=== PATIENT | male | born 1965 | race Hispanic/Latino ===

== ENCOUNTER 2024-07-09 12:09 | Emergency (ER) | payer OTHER ==
[~2024-07-09] VITALS: Ht 180.3 cm; Wt 113.4 kg
[2024-07-09] MEDS: ketOROlac 30MG VIAL (30MG/ML) IM ONE (13:02)
[2024-07-09] MEDS: ORPHENADRINE 60MG/2ML IM ONE (13:02)
--- NOTE | 2024-07-09 13:22 | ERN ---
General Chief Complaint: Low Back Pain/Injury Stated Complaint: BACK PAIN Time Seen by MD: 12:13 Source: patient History of Present Illness Initial Comments 59-year-old male coming in to be evaluated for left flank pain he states that the pain began yesterday and got concerned because the pain also radiates to the left hip and then after that the left leg is numb. No fever no chills. Patient does work and a stressful environment. Allergies: Coded Allergies: No Known Allergies (Unverified Allergy, Unknown, 07/09/24) Past Medical History Past Medical History: Diabetes-Type II, High Cholesterol, Hypertension Medical History Other: SPINAL STENOSIS Past Surgical History: Other Surgical History Other: L KNEE SURGERY ROS Dictation CONSTITUTIONAL: No chills, no fever, no weakness, no diaphoresis, no malaise. HEAD/FACE: No signs of trauma. EENT: No eye pain, no blurred vision, no tearing, no double vision, no ear pain, no ear discharge, no nose pain, no nasal congestion, no throat pain, no throat swelling, no mouth pain. RESPIRATORY: No cough, no orthopnea, no SOB, no stridor, no wheezing. CARDIOVASCULAR: No chest pain, no edema, no palpitations, no syncope. GASTROINTESTINAL/ABDOMINAL: No abdominal pain, no constipation, no diarrhea, no nausea, no vomiting. GENITOURINARY: No abnormal discharge, no dysuria, no frequent urination, no hematuria. No complaints of pain in the genitals. MUSCULOSKELETAL: No back pain, no gout, no joint pain, no joint swelling, no muscle pain, no muscle stiffness, no neck pain. INTEGUMENTARY: No change in color, no change in hair/nails, no dryness, no lesion, no lumps, no rash. NEUROLOGICAL/PSYCH: No anxiety, not depressed, no emotional problem, no headache, no numbness, no pre-existing deficit, no history of seizures, no tremors, no weakness. HEMATOLOGIC/LYMPHATIC: Not anemic, no history of blood clots, no apparent ble eding, no bruising, glands not swollen. All Systems Negative, Except as Noted. Physical Exam Physical Exam Dictation VITAL SIGNS: Reviewed. GENERAL APPEARANCE: Alert, oriented x3, no acute distress, obese. HEAD AND FACE: Non-traumatic. EYES: PERRL, pink conjunctivas, eyelid no trauma, anterior chamber clear. EARS: Pinnas intact and no signs of trauma or erythema. Ear canals clear and no discharge. TMs no erythema. NOSE: No discharge, no bleeding. OROPHARYNX: Mouth normal, teeth no caries, tongue pink. Pharynx clear, no erythema. Tonsils no exudates, no abscesses noted. Mucous membrane moist. NECK: Supple, non-tender, no thyromegaly, no masses, no JVD, no bruits. BREAST: Deferred. CHEST: No tenderness, no crepitus, no paradoxical movement, no retractions. LUNGS: Clear, well-ventilated, symmetric, no rales, no wheezing, no rhonchi, no stridor, good breath sounds bilaterally. HEART: Regular rate, regular rhythm, no murmur, no gallops. VASCULAR: No peripheral edema. ABDOMEN: Soft, positive bowel sounds, nondistended, no guarding, nontender, no rebound, no masses no hepatomegaly, no splenomegaly, no Decker's sign, no hernias. RECTAL: Deferred. GENITAL: Deferred. NEUROLOGICAL: Normal speech, gross motor function intact, gross sensory function intact. MUSCULOSKELETAL: Neck nontender, full range of motion, back nontender, full range of motion. EXTREMITIES: Nontender, full range of motion. SKIN: Color pink, dry, no turgor, no rash, no lacerations, no abrasions, no contusions. LYMPHATICS: Deferred. Results Laboratory and Microbiology Lab and Micro Result Laboratory Tests Test 07/09/24 12:42 07/09/24 13:13 Urine Color LIGHT-YELLOW (YELLOW) Urine Appearance CLEAR (CLEAR) Urine pH 7.5 (5.0-8.0) Urine Specific [place] 1.033 (1.001-1.031) Urine Protein NEGATIVE mg/dL (NEGATIVE) Urine Glucose (UA) >=1000 mg/dL (NEGATIVE) H Urine Ketones 10 mg/dL (NEGATIVE) H Urine Occult Blood NEGATIVE (NEGATIVE) Urine Nitrate NEGATIVE (NEGATIVE) Urine Bilirubin NEGATIVE mg/dL (NEGATIVE) Urine Urobilinogen 0.2 mg/dL (0.2-1.0) Urine Leukocyte Esterase 75 Christian/uL (NEGATIVE) H Urine RBC 2-5 /HPF (0-1) H Urine WBC 2-5 /HPF (0-1) H Urine Squamous Epithelial Cells RARE /HPF (0-2) Urine Bacteria RARE /HPF (None Seen) White Blood Count 8.4 K/uL (4.8-10.8) Red Blood Count 5.67 MIL/uL (4.50-6.20) Hemoglobin 17.7 g/dL (14.0-18.0) Hematocrit 53.1 % (42-54) Mean Corpuscular Volume 93.7 fL (79-99) Mean Corpuscular Hemoglobin 31.2 pg (27.0-33.0) Mean Corpuscular Hemoglobin Concent 33.3 g/dL (32.0-36.0) Red Cell Distribution Width 15.0 % (11.0-15.5) Platelet Count 213 K/uL (130-400) Mean Platelet Volume 10.2 fL (7.5-10.5) Immature Granulocyte % (Auto) 0.4 % (0-1) Neutrophils (%) (Auto) 73.4 % (40.0-77.0) Lymphocytes (%) (Auto) 16.5 % (21.0-51.0) L Monocytes (%) (Auto) 8.5 % (3.0-13.0) Eosinophils (%) (Auto) 0.6 % (0.0-8.0) Basophils (%) (Auto) 0.6 % (0.0-5.0) Neutrophils # (Auto) 6.1 K/uL (1.8-7.7) Lymphocytes # (Auto) 1.4 K/uL (1.0-4.8) Monocytes # (Auto) 0.7 K/uL (0.1-1.0) Eosinophils # (Auto) 0.05 K/uL (0.00-0.70) Basophils # (Auto) 0.05 K/uL (0.00-0.20) Absolute Immature Granulocyte (auto 0.03 K/uL (0-1) Nucleated Red Blood Cells 0.0 % (0.0-0.19) Sodium Level 130 mmol/L (136-145) L Potassium Level 4.4 mmol/L (3.5-5.1) Chloride Level 94 mmol/L (101-111) L Carbon Dioxide Level 31 mmol/L (21-32) Blood Urea Nitrogen 15 mg/dL (7-18) Creatinine 1.0 mg/dL (0.5-1.3) Glomerular Filtration Rate Calc 87 mL/min (>90) Random Glucose 250 mg/dL (70-105) H Total Calcium 9.7 mg/dL (8.5-10.1) Labs Reviewed?: Yes EKG/XRAY/US/CT/MRI CT Scan Comment [id number] [place] [id number] IMAGING REPORT Signed PATIENT: RANDAL TAVERAS MR#: [id number] : 1965 SEX: M AGE: 59 LOCATION: [facility] ORDER [id number] STATUS: REG REPORT#: [id number] SERVICE 1236 REASON: left flank pain ORDERING PHYSICIAN: SAMARA TEJEDA MD PROCEDURE: ABD PEL WO - CT ABDOMEN/PELVIS W/O CONTRAST Exam Type: CT ABDOMEN/PELVIS W/O CONTRAST Clinical Information: left flank pain Comparison: None CT Dose Index (CTDI): 10.20 mGy Dose Length Product (DLP): 530.00 total mGy-cm PROTOCOL: Routine noncontrast helical scanning of the abdomen and pelvis was performed at 5mm collimation. Findings: No evidence of nephro or ureterolithiasis is found. No hydronephrosis or ureteral dilatation is seen. The lung bases are clear. The stomach is unremarkable. It shows no wall thickening. No gross ulceration is seen. It is not overly distended. There are no surrounding inflammatory changes. No wall lesions are identified to suggest cancer. The spleen is unremarkable. It is not enlarged. The pancreas shows normal anatomy. It is not fatty replaced. It shows no lesions. The pancreatic duct is not dilated. The gallbladder is unremarkable. It shows no cholelithiasis. The gallbladder wall is normal in thickness. There is no pericholecystic fluid. The is no acute or chronic inflammation noted. The adrenal glands are unremarkable. There is no enlargement. No lesions are noted. The liver is unremarkable. It shows no focal masses. The appendix is unremarkable. It shows no evidence of inflammation. No appendicolith is seen. The small bowel is unremarkable. There is no evidence of dilatation to suggest obstruction. No evidence of adynamic ileus is seen. There is no small bowel wall thickening to suggest enteritis. The colon is unremarkable. The urinary bladder is unremarkable. There is no wall thickening to suggest tumor or inflammation. There are no intraluminal calculi. There are no diverticula. There is no evidence of chronic bladder outlet obstruction. There is no evidence of urinary bladder distention to suggest urinary retention. The other pelvic structures are unremarkable. The bony and vascular structures are unremarkable for the patient's age. IMPRESSION: NEGATIVE CT SCAN OF THE ABDOMEN AND PELVIS. NO RENAL STONES. NO ACUTE PATHOLOGY OR INFLAMMATION SEEN. This study was performed using dose reduction techniques to include automated exposure control and/or adjustment of the mA and/or kV according to patient size. DICTATED BY: SID IVERSON MD DATE: 07/09/24 132 ELECTRONICALLY SIGNED BY: SID IVERSON MD DATE: 07/09/241326 [facility] MDM: Differential diagnosis: Left flank pain, muscle strain, chronic back pain Patient is a 59-year-old male coming in to be evaluated for left flank pain. Per patient the symptoms has been ongoing for two days. But previously he was diagnosed with lumbar stenosis in his pending surgical evaluation by surgeon. Patient did feel better with the medication provided. Patient will be discharged stable condition. Patient will be discharged in stable condition I did advised him appropriate follow up with PCP and internal medicine specialist. ED Course Orders Procedure Category Date Status Time Cbc With Differential LAB 07/09/24 Complete 12:36 Basic Metabolic Panel LAB 07/09/24 Complete 12:36 Urinalysis LAB 07/09/24 Complete W/Microscopic 12:36 Ct Abdomen/Pelvis W/O CT 07/09/24 Resulted Contrast 12:36 Orphenadrine Citrate PHA 07/09/24 Complete (Norflex) 13:00 Ketorolac PHA 07/09/24 Complete Tromethamine 30mg/Ml 13:00 Culture Urine JESUS 07/09/24 Logged 13:53 Current Medications Medications (Trade) Dose Ordered Sig/Fabian Route PRN Reason Start Time Stop Time Status Last Admin Dose Admin Ketorolac Tromethamine (toRADol) 30 mg ONCE ONCE IM 07/09/24 13:00 07/09/24 13:01 DC 07/09/24 13:02 Orphenadrine Citrate (Norflex) 60 mg ONCE ONCE IM 07/09/24 13:00 07/09/24 13:01 DC 07/09/24 13:02 Vital Signs Date Time Temp Pulse Resp B/P (MAP) Pulse Ox O2 Delivery O2 Flow Rate FiO2 07/09/24 13:31 98.6 74 20 132/71 100 Room Air* 0 21 07/09/24 12:29 98.6 74 20 156/69 100 Room Air* 0 21 DX & DISP Disposition: Discharge Departure Impression: Primary Impression: Chronic back pain Condition: Stable Additional Instructions: FOLLOW-UP WITH PRIMARY CARE PROVIDER IN 1 TO 2 DAYS. TAKE MEDICATIONS DIRECTED HERE IN THE EMERGENCY ROOM. OKAY TO CONTINUE HOME MEDICATIONS UNLESS OTHERWISE DISCUSSED DURING YOUR VISIT IN THE EMERGENCY ROOM TODAY. RETURN TO YOUR NEAREST EMERGENCY ROOM IF SYMPTOMS WORSEN OR IF THERE IS NO IMPROVEMENT. CALL 911 IF YOU NEED IMMEDIATE ASSISTANCE. TAKE TYLENOL [id number] NEEDED AND IF NO CONTRAINDICATIONS ARE PRESENT. INCREASE ORAL HYDRATION. A WOUND CULTURE OR URINE CULTURE WAS ORDERED HERE IN THE EMERGENCY ROOM DEPARTMENT PLEASE FOLLOW-UP WITH PRIMARY CARE PROVIDER AND ADVISE THEM TO GET REPEAT PORTS FROM OUR FACILITY. IF YOU HAD ANY LEXI WRAP/SPLINTS THAT WERE APPLIED HERE, PLEASE DO NOT REMOVE THEM UNTIL YOU SEE YOUR PRIMARY CARE OR SPECIALTY. Referrals: Referrals: SELF,REFERRAL (PCP) ESDRAS VÁZQUEZ MD, LUIS A MD Time of Disposition: 14:06 SAMARA TEJEDA MD Jul 09, 2024 13:22
--- NOTE | 2024-07-09 13:27 | HMCIMG ---
Exam Type: CT ABDOMEN/PELVIS W/O CONTRAST Clinical Information: left flank pain Comparison: None CT Dose Index (CTDI): 10.20 mGy Dose Length Product (DLP): 530.00 total mGy-cm PROTOCOL: Routine noncontrast helical scanning of the abdomen and pelvis was performed at 5mm collimation. Findings: No evidence of nephro or ureterolithiasis is found. No hydronephrosis or ureteral dilatation is seen. The lung bases are clear. The stomach is unremarkable. It shows no wall thickening. No gross ulceration is seen. It is not overly distended. There are no surrounding inflammatory changes. No wall lesions are identified to suggest cancer. The spleen is unremarkable. It is not enlarged. The pancreas shows normal anatomy. It is not fatty replaced. It shows no lesions. The pancreatic duct is not dilated. The gallbladder is unremarkable. It shows no cholelithiasis. The gallbladder wall is normal in thickness. There is no pericholecystic fluid. The is no acute or chronic inflammation noted. The adrenal glands are unremarkable. There is no enlargement. No lesions are noted. The liver is unremarkable. It shows no focal masses. The appendix is unremarkable. It shows no evidence of inflammation. No appendicolith is seen. The small bowel is unremarkable. There is no evidence of dilatation to suggest obstruction. No evidence of adynamic ileus is seen. There is no small bowel wall thickening to suggest enteritis. The colon is unremarkable. The urinary bladder is unremarkable. There is no wall thickening to suggest tumor or inflammation. There are no intraluminal calculi. There are no diverticula. There is no evidence of chronic bladder outlet obstruction. There is no evidence of urinary bladder distention to suggest urinary retention. The other pelvic structures are unremarkable. The bony and vascular structures are unremarkable for the patient's age. IMPRESSION: NEGATIVE CT SCAN OF THE ABDOMEN AND PELVIS. NO RENAL STONES. NO ACUTE PATHOLOGY OR INFLAMMATION SEEN. This study was performed using dose reduction techniques to include automated exposure control and/or adjustment of the mA and/or kV according to patient size.
[2024-07-09 13:31] VITALS: BP 132/71; PULSE 74; RESP 20; TEMP 98.6; O2SAT 100
[2024-07-09 13:32] LABS: BASOPHILS # (AUTO) 0.05 K/uL (0.00-0.20); BASOPHILS % (AUTO) 0.6 % (0.0-5.0); EOSINOPHILS # (AUTO) 0.05 K/uL (0.00-0.70); EOSINOPHILS % (AUTO) 0.6 % (0.0-8.0); HEMATOCRIT 53.1 % (42-54); IMMATURE GRANULOCYTE ABSOLUTE 0.03 K/uL (0-1); LYMPHOCYTES # (AUTO) 1.4 K/uL (1.0-4.8); LYMPHOCYTES % (AUTO) 16.5 % (21.0-51.0); MEAN CORPUSCULAR HEMOGLOBIN 31.2 pg (27.0-33.0); MEAN CORPUSCULAR HGB CONC 33.3 g/dL (32.0-36.0); MEAN CORPUSCULAR VOLUME 93.7 fL (79-99); MONOCYTES # (AUTO) 0.7 K/uL (0.1-1.0); MONOCYTES % (AUTO) 8.5 % (3.0-13.0); NEUTROPHILS # (AUTO) 6.1 K/uL (1.8-7.7); NEUTROPHILS % (AUTO) 73.4 % (40.0-77.0); PLATELET COUNT (AUTO) 213 K/uL (130-400); RED BLOOD CELL COUNT(AUTO) 5.67 MIL/uL (4.50-6.20); WHITE BLOOD COUNT (AUTO) 8.4 K/uL (4.8-10.8)
[2024-07-09 13:46] LABS: POTASSIUM 4.4 mmol/L (3.5-5.1)
[2024-07-09 13:49] LABS: APPEARANCE,URINE CLEAR (CLEAR); BACTERIA,URINE RARE /HPF (None Seen); BILIRUBIN,URINE NEGATIVE (NEGATIVE); COLOR,URINE LIGHT-YELLOW (YELLOW); GLUCOSE, URINE (UA) >=1000 mg/dL (NEGATIVE); KETONES,URINE 10 mg/dL (NEGATIVE); LEUKOCYTE ESTERASE ,URINE 75 Leu/uL (NEGATIVE); NITRATE,URINE NEGATIVE (NEGATIVE); OCCULT BLOOD,URINE NEGATIVE (NEGATIVE); PH,URINE 7.5 (5.0-8.0); PROTEIN,URINE NEGATIVE (NEGATIVE); SQUAMOUS EPITHELIAL CELL,UR RARE /HPF (0-2); UROBILINOGEN,URINE 0.2 mg/dL (0.2-1.0)
[2024-07-09] MEDS ORDERED: NAPR-1194 PO (14:10)
[2024-07-09] MEDS ORDERED: METH16TA PO (14:10)
[2024-07-09] MEDS: TRIAMCINOLONE ACETONIDE 40 MG/ML 1ML VIAL IM ONE (14:15)
== END 2024-07-09 14:16 | disposition home or self-care (01) ==
LOC: EDH 12:09
DX: G89.29 Other chronic pain (principal); M54.50 Low back pain, unspecified; E11.9 Type 2 diabetes mellitus without complications; E78.00 Pure hypercholesterolemia, unspecified; I10 Essential (primary) hypertension
CPT/HCPCS: 99285; 74176; 80048; 85025; 87086; 81001; 36415; 96372 ×3; J1885; J3301; J2360

== ENCOUNTER 2024-07-15 05:16 | Emergency (ER) | payer OTHER ==
[~2024-07-15] VITALS: Ht 180.3 cm; Wt 105.2 kg
[~2024-07-15 05:16] MED LIST: METH16TA PO; NAPR-1194 PO
[2024-07-15] MEDS: ketOROlac 30MG VIAL (30MG/ML) IVP ONE (05:44)
--- NOTE | 2024-07-15 05:59 | ERN ---
ED Note History of Present Illness Stated Complaint: LEFT LEG PAIN Chief Complaint: Lower Extremity Pain/Injury Time Seen by MD: 05:18 Dictation: This is a 59-year-old male who presented to the emergency room with his spouse complaining of left lower extremity pain on the medial and lateral aspects. He has a known history of spinal stenosis and gets the left leg pain but today it was worse and hence he came into the ER for further management. No history of any injury no history of falls no abrasions or lacerations. No difficulty walking. He was here on the for abdominal pain radiating to the back and a CT scan of the abdomen and pelvis was negative for any acute findings. Denied any bladder or bowel incontinence. Temperature 98.4 pulse 101 respirations 20 blood pressure 139/97 with a pulse oximetry of 100% on room air His chronic medical problems include diabetes mellitus hypertension and hypercholesterolemia. He has chronic low back pain due to spinal stenosis Allergies: Coded Allergies: No Known Allergies (Unverified Allergy, Unknown, 07/09/24) Home Meds Active Scripts Methylprednisolone (Medrol) 16 Mg Tablet, 1 TAB PO DAILY for 5 Days, #5 TAB 0 Refills Prov:SAMARA TEJEDA MD 07/09/24 Naproxen (Naproxen) 500 Mg Tablet, 500 MG PO BID for 7 Days, #13 TAB Prov:SAMARA TEJEDA MD 07/09/24 Past Medical History Past Medical History: Diabetes-Type II, High Cholesterol, Hypertension Additional Past Medical Hx: SPINAL STENOSIS Surgical History: Other Surgical History Other: L KNEE SURGERY Family History: Negative RN Note Reviewed/Agreed w/PFSH: Yes Review of System Dictation Constitutional: Negative for fever,chills, and weight loss Eyes: Negative for injury, pain,redness, and discharge ENT: Negative for injury,pain or swelling Cardiovascular: Negative for chest pain, palpitations, and edema Respiratory: Negative for shortness of breath, cough, and wheezing, Abdomen/GI: Negative for abdominal pain, nausea, vomiting, diarrhea, and constipation Back: Chronic back pain : Negative for injury, bleeding and discharge MS/Extremity: Negative for injury and deformity left leg pain no swelling no redness Skin: Negative for rash, and discoloration Neuro: Negative for headache, weakness, numbness, tingling, and seizure Psych: Negative for suicide ideation, homicidal ideation, and hallucinations Initial Vital Sign VS Vital Signs Date Time Temp Pulse Resp B/P (MAP) Pulse Ox O2 Delivery O2 Flow Rate FiO2 07/15/24 05:18 98.4 101 20 139/97 100 Room Air 07/15/24 05:30 0 21 Physical Exam Dictation General: awake, alert, NAD Head/Face: Normocephalic, atraumatic Eyes: PERRL, EOMI, vision at baseline ENT: oral cavity clear, TMs clear, no signs of infection Neck: Trachea midline, supple, no nuchal rigidity Cardiovascular: RRR, normal S1/S2, No MRGs, no JVD Respiratory: CTAB, no respiratory distress, No rales or wheezes Abdomen: Soft, non-tender, non-distended, normal bowel sounds, no guarding or rebound. Skin: Warm, dry, normal turgor, no rash MS/Extremity: Pulses equal, no cyanosis, neurovascular intact, FROM Neuro: COAx4, GCS 15, strength 5/5, CN 2-12 intact, normal cerebellar exam, normal gait, Psych: Normal behavior, mood, and affect normal Extremities-trace edema without any palpable cords, Homans sign is negative Results (Laboratory/Radiology) Labs Reviewed?: Yes ED Course ED Course Orders Procedure Category Date Status Time Ketorolac PHA 07/15/24 Complete Tromethamine 30mg/Ml 05:30 Gabapentin 100 Mg Cap PHA 07/15/24 Complete (Neurontin 100 Mg 07:29 Triamcinolone Acet PHA 07/15/24 Complete 40mg/Ml 1ml (Kenalog 07:30 Current Medications Medications (Trade) Dose Ordered Sig/Fabian Route PRN Reason Start Time Stop Time Status Last Admin Dose Admin Gabapentin (NEURontin 100 mg CAP) 100 mg ONCE STAT PO 07/15/24 07:29 07/15/24 07:33 DC 07/15/24 08:07 Ketorolac Tromethamine (toRADol) 30 mg ONCE ONCE IVP 07/15/24 05:30 07/15/24 05:36 DC 07/15/24 05:44 Triamcinolone Acetonide (Kenalog 40) 40 mg ONCE ONCE IM 07/15/24 07:30 07/15/24 07:33 DC 07/15/24 08:07 Vital Signs Date Time Temp Pulse Resp B/P (MAP) Pulse Ox O2 Delivery O2 Flow Rate FiO2 07/15/24 07:50 97.5 82 16 125/80 99 Room Air* 0 21 07/15/24 06:46 75 18 136/84 99 Room Air* 0 21 07/15/24 06:10 85 18 117/64 99 Room Air* 0 21 07/15/24 05:30 98.1 89 16 124/72 99 Room Air* 0 21 07/15/24 05:18 98.4 101 20 139/97 100 Room Air Medical Decision Making MDM MDM: Differential diagnosis: Radiculopathy lumbar, musculoskeletal pain nerve impingement, Patient is a 59-year-old male coming in to be evaluated for back pain. Patient is a extensive history of back pain due to the stenosis. Patient has not follow up with neurologist yet. He is pending a visit next week. Patient will be discharged in stable condition with a diagnosis of chronic back pain. Problem List Problem List: (1) Left thigh pain (2) Lumbar radiculopathy (3) Chronic back pain (4) Lumbar spinal stenosis DX & DISP Disposition: Discharge Departure Impression: Primary Impression: Chronic back pain Additional Impressions: Lumbar radiculopathy, Spinal stenosis, lumbar, Pain in left thigh Condition: Stable Scripts Gabapentin (Gabapentin) 100 Mg Capsule 1 CAP PO BID for 7 Days, #14 CAP 0 Refills Prov: SAMARA TEJEDA MD 07/15/24 Additional Instructions: Patient and the caregiver have been informed of all the diagnostic tests and the imaging conducted during the today's visit to the emergency room and has verbalized understanding of the results I have personally reviewed and interpreted all diagnostic exams performed here in the ER today as well as the vital signs documented by the nursing staff. The patient is now being discharged to home and should follow up with the primary care physician or the specialist as directed by the ER staff. Follow-up with primary care provider in 1 to 2 days. Take medications as directed here in the emergency room. Okay to continue home medications unless otherwise discussed during your visit in the emergency room today. Return to your nearest emergency room if symptoms worsen or if there is no improvement. Call 911 if you need immediate assistance. Take Tylenol or Motrin [id number] as needed and if no contraindications are present. Increase oral hydration. A wound culture or urine culture was ordered here in the [facility] room department please follow-up with primary care provider and advise them to get repeat ports from our facility. If you had any Nile wrap/splints that were applied here, please do not remove them until you see your primary care or specialty. Referrals: SELF,REFERRAL (PCP) GERRY GANT MD Time of Disposition: 08:37 SHAYLA COLON MD Jul 15, 2024 05:58 SAMARA TEJEDA MD Jul 15, 2024 08:37
--- NOTE | 2024-07-15 07:02 | NUR ---
REPORT GIVEN TO DAVID BLACKBURN AT THIS TIME
[2024-07-15] MEDS: GABApentin 100 MG CAPSULE PO STA (08:07)
[2024-07-15] MEDS: TRIAMCINOLONE ACETONIDE 40 MG/ML 1ML VIAL IM ONE (08:07)
[2024-07-15] MEDS ORDERED: GABA-529 PO (08:36)
[2024-07-15 09:02] VITALS: BP 142/84; PULSE 79; RESP 16; TEMP 97.5; O2SAT 100
== END 2024-07-15 08:46 | disposition home or self-care (01) ==
LOC: EDH 05:16
DX: G89.29 Other chronic pain (principal); M54.50 Low back pain, unspecified; M54.16 Radiculopathy, lumbar region; M48.061 Spinal stenosis, lumbar region without neurogenic claudication; M79.652 Pain in left thigh; E11.9 Type 2 diabetes mellitus without complications; E78.00 Pure hypercholesterolemia, unspecified; I10 Essential (primary) hypertension; Z79.52 Long term (current) use of systemic steroids
CPT/HCPCS: 99285; 96374; 96372; J1885; J3301; 99284